=== PATIENT | female | born 1945 | race Caucasian/White ===

== ENCOUNTER 2018-12-07 10:21 | Inpatient (IN) | payer MEDICARE, OTHER ==
[~2018-12-07] VITALS: Ht 157.5 cm; Wt 48.6 kg
[~2018-12-07 10:21] MED LIST: HYDACE5 PO; PROM25 PO
[2018-12-07 10:58] LABS: BASOPHILS ABSOLUTE AUTO 0.03 K/mm3 (0.00-0.23); BASOPHILS PERCENT AUTO 1 % (0-2); EOSINOPHILS ABSOLUTE AUTO 0.06 K/mm3 (0.00-0.68); EOSINOPHILS PERCENT AUTO 1 % (0-6); Hematocrit 37.1 % (33.0-51.0); Hemoglobin 12.7 g/dL (11.5-16.0); IMMATURE GRAN ABSOLUTE AUTO 0.02 K/mm3 (0.00-0.10); IMMATURE GRAN PERCENT AUTO 0 % (0-1); LYMPHOCYTES ABSOLUTE AUTO 1.79 K/mm3 (0.84-5.20); LYMPHOCYTES PERCENT AUTO 29 % (21-46); MONOCYTES ABSOLUTE AUTO 1.06 K/mm3 (0.16-1.47); MONOCYTES PERCENT AUTO 17 % (4-13); Mean Corpuscular HGB 30.3 pg (26.0-34.0); Mean Corpuscular HGB Conc 34.2 g/dL (31.5-36.5); Mean Corpuscular Volume 89 fL (80-100); Mean Platelet Volume 8.8 fL (9.1-12.4); NEUTROPHILS ABSOLUTE AUTO 3.19 K/mm3 (1.96-9.15); NEUTROPHILS PERCENT AUTO 52 % (41-73); Platelet Count 254 K/mm3 (150-400); RDW Coefficient Variation 11.8 % (11.7-14.2); RDW Standard Deviation 37.8 fL (35.1-46.3); Red Blood Cell Count 4.19 M/mm3 (3.80-5.20); White Blood Cell Count 6.15 K/mm3 (4.00-11.30)
[2018-12-07 11:10] LABS: Calcium, Ionized (POC) 1.08 mmol/L (1.10-1.46); Chloride (POC) 90 mmol/L (98-108); Creatinine (POC) 0.7 mg/dL (0.6-1.0); Glucose (ISTAT POC) 130 mg/dL (70-99); Hemoglobin (POC) 12.6 g/dL (12.0-16.0); Potassium (POC) 3.4 mmol/L (3.5-5.5); Sodium (POC) 127 mmol/L (135-148); Total CO2 (POC) 24 mmol/L (21-32)
[2018-12-07 11:24] LABS: Alanine Aminotransfer (ALT/SGP 16 U/L (12-78); Albumin, Blood 3.5 g/dL (3.4-5.0); Albumin/Globulin Ratio 0.9 (0.8-1.8); Alk Phos 82 U/L (50-136); Anion Gap 10 mmol/L (6-16); Aspartate Aminotrans (AST/SGOT 21 U/L (12-37); Bilirubin, Total 0.4 mg/dL (0.1-1.0); Blood Urea Nitrogen 11 mg/dL (8-24); Bun/Creatinine Ratio 15.6 (12.0-20.0); CO2, Blood 26 mmol/L (21-32); Calcium, Blood 8.3 mg/dL (8.5-10.1); Chloride, Blood 92 mmol/L (98-108); Creatinine, Blood 0.71 mg/dL (0.40-1.00); Globulin, Blood 3.8 g/dL (2.2-4.0); Glomerular Filtration Rate >60 (60-); Glucose, Blood 126 mg/dL (70-99); Potassium, Blood 3.4 mmol/L (3.5-5.5); Sodium, Blood 128 mmol/L (136-145); Total Protein, Blood 7.3 g/dL (6.4-8.2); Troponin I <0.015 ng/mL (0.000-0.040)
--- NOTE | 2018-12-07 12:59 | NUR ---
RECEIVED PHONE CALL FROM DR. GOODE WITH PLAN UPDATE: VAGAL PROBABLE FROM PHENERGEN. ATROPINE TO REMAIN AT BEDSIDE. MONITOR OVERNIGHT.
--- NOTE | 2018-12-07 13:00 | NUR ---
Echocardiogram completed.
--- NOTE | 2018-12-07 14:15 | NUR ---
REPORT FROM NAN WELLS RN ER.
--- NOTE | 2018-12-07 14:48 | NUR ---
PATIENT ADMITTED ICU 6. ATROPINE AT BEDSIDE. AT BEDSIDE.
[2018-12-07 16:10] LABS: Appearance, Urine Clear (Clear); Bilirubin, Urine Neg (Neg); Blood, Urine 1+ (Neg); Color, Urine Yellow (P-Yellow); Glucose Qualitative, Urine Neg (Neg); Ketones, Urine 2+ (Neg); Leukocyte Esterase, Urine Neg (Neg); Nitrite, Urine Neg (Neg); Protein, Urine Neg (Neg); Specific Gravity, Urine 1.015 (1.003-1.022); Urobilinogen, Urine NORM (Normal)
[2018-12-07 16:44] LABS: Bacteria Not Seen /hpf; Red Blood Cells, Urine 0-2 /hpf (0-2); Squamous Epithelial Cells Rare /hpf (Few); White Blood Cells, Urine Not Seen /hpf (0-5)
--- NOTE | 2018-12-07 18:19 | NUR ---
MD VISIT DR. GOODE IN. PT NPO AFTER MIDNIGHT. IVF TO CONTINUE AT 100 ML/HR AFTER THIS BAG (AT 125 ML/HR) COMPLETE
--- NOTE | 2018-12-07 19:14 | NUR ---
NO ECTOPY SINCE ADMIT TO ICU. REPORT GIVEN TO ZHENG HIGGINS
--- NOTE | 2018-12-07 21:33 | NUR ---
ASSUMING CARE RECEIVED PT REPORT FROM ZHENG YUSUF. PT IS ALERT AND ORIENTED AT THE TIME CARE WAS ASSUMED. PT IS ADMITTED DUE TO A SYNCOPLA EPISODE AND A SINUS PAUSE. PT HAS EXTERNAL PACER PADS IN PLACE AND EXTERNAL PACER AT BEDSIDE. ATROPINE IS AT BEDSIDE WELL. PT DENIES ANY PAIN OR DISCOMFORT AT THIS TIME. PT IS ABLE TO AMBULATE IN ROOM, REQUIRING ASSISTANCE WITH LINES ONLY. PT HAS BEEN INSTRUCTED TO NOT GET OUT OF BED WITHOUT ASSISTANCE. PT APPEARS TO BE IN NSR AT THIS TIME. HR APPEARS TO BE STABLE IN THE 80'S. PT DENIES ANY FEELING OF WEAKNESS OF LIGHTHEADEDNESS. PT IS ON ROOM AIR WITH SPO2 IN THE HIGH 90'S. LUNG SOUNDS ARE CLEAR AT THIS TIME. PT IS TO BE NPO AFTER MIDNIGHT DUE TO A POSSIBLE PROCEDURE. ASSUMING CARE OF PT AT THE TIME OF SHIFT REPORT. WILL CONTINUE TO MONITOR PT.
[2018-12-08 04:21] LABS: International Normalized Ratio 1.02; Prothrombin Time Results 10.8 Sec (9.7-11.5)
[2018-12-08 04:50] LABS: Anion Gap 10 mmol/L (6-16); Blood Urea Nitrogen 10 mg/dL (8-24); CO2, Blood 21 mmol/L (21-32); Calcium, Blood 7.8 mg/dL (8.5-10.1); Chloride, Blood 107 mmol/L (98-108); Creatinine, Blood 0.59 mg/dL (0.40-1.00); Glomerular Filtration Rate >60 (60-); Glucose, Blood 89 mg/dL (70-99); Potassium, Blood 3.9 mmol/L (3.5-5.5); Sodium, Blood 138 mmol/L (136-145)
--- NOTE | 2018-12-08 05:21 | NUR ---
SHIFT SUMMARY NOTE PT HAS REMAINED ALERT AND ORIENTED THROUGH THE NIGHT WHILE AWAKE. PT HAS SLEPT THROUGH MUCH OF THE NIGHT. PT HAS USEED CALL LIGHT APPROPRIATELY FOR ASSISTANCE WITH LINES AND TUBES WHEN GETTING UP TO USE BSC. PT HAS HAD CLEAR LIGHT YELLOW URINE THROUGH THE NIGHT. PT IS ON NS AT 100ML/HR AT THIS TIME. PT CONTINUES TO HAVE ZOLL IN PLACE AND HAVE ATRPOINE AT BEDSIDE. PT HAS REMAINED IN NSR THROUGH THE NIGHT. PT AVERAGED IN THE 80'S WHILE AWAKE AND IN THE 60'S WHILE ASLEEP. PT HAS NOT HAD ANY ECTOPY OR PAUSES OBSERVED THROUGH THE SHIFT. PT HAS DENIED ANY LIGHTHEADEDNESS OR WEAKNESS THROUGHOUT THE SHIFT. WILL REPORT OFF TO [facility] DAY SHIFT NURSE.
--- NOTE | 2018-12-08 07:06 | NUR ---
ASSUMED CARE REPORT FROM ZHENG HIGGINS. PATIENT AWAKE, WAS DISAPPOINTED TO LEARN SHE WOULD NOT BE SENT HOME TODAY AND HER INITIAL SBP'S WERE HIGH. CALMED SOME OF THE LINES AND CORDS REMOVED
--- NOTE | 2018-12-08 07:31 | NUR ---
ACTUALLY IN LEFT WRIST
--- NOTE | 2018-12-08 07:34 | NUR ---
PATIENT ATTEMPTED BM WITH NO RESULTS. MONITOR WATCHED, NO SIGN OF VAGAL.
--- NOTE | 2018-12-08 07:42 | NUR ---
MD VISIT DR. MÁRQUEZ IN
--- NOTE | 2018-12-08 13:15 | NUR ---
REPORT GIVEN TO ZHENG ANDREA. WILL MOVE PATIENT IN WC TO PCU 11
--- NOTE | 2018-12-08 13:40 | NUR ---
TRANSFER ASSESSMENT: Pt arrived to room pcu 11 from ICU via wc. Alert and oriented X 4. LS clear. BT positive, HR reg, Pulses palp. Pt has at her side. Oriented to room and unit. Pt denies pain, CP, dizziness or any issues. Call light in reach. Will continue to mnoitor.
--- NOTE | 2018-12-08 18:25 | NUR ---
SHIFT SUMMARY: Pt up independently in room. Has denied any pain, sob, dizziness since arrival to unit. Pt was able to shower and states that she is feeling much better. Pt does have dry cough. VSS throughout shift. Plan for discharge tomorrow with heart monitor to home. Pt denies questions about this at this time. Call light in reach. at bedside. Will report to night rn.
--- NOTE | 2018-12-08 18:38 | NUR ---
Per admit trigger, I met with Jasmyn to discuss Advanced Directives. She was irritaited and asked that "we" stop asking her about this.
--- NOTE | 2018-12-09 06:19 | NUR ---
SHIFT SUMMARY PT ALERT AND ORIENTED. VS STABLE. PT INDEPENDENT IN THE ROOM. NO CHANGES IN HEART RHYTHM. PT DENIES ANY PAIN. PT COMPLAINS OF CONGESTED COUGH WITH NO PRODUCTION. O2 SATS >92% ON RA. NO CHANGES SINCE INITIAL ASSESSMENT. WILL CONTINUE TO MONITOR AND REPORT TO ONCOMING RN. CALL LIGHT IN REACH.
--- NOTE | 2018-12-09 07:42 | NUR ---
INITIAL ASSESSMENT: Pt woke to verbal stimulus and is independent in room. States that she is feeling pretty good. LS clear. HR reg. BT positive. pulses palp. Pt states that she is anxious to be discharged. Plan for discharge today after heart monitor is placed for home. VSS. Will monitor. Call light in reach.
--- NOTE | 2018-12-09 10:50 | NUR ---
discharge: Pt was given to verbal and written discharge instructions. IV's discontinued and cath intact. Zio heart monitor was placed by heart center nurse. Pt denies questions regarding discharge or heart monitor. Waiting for to get here. Marisabel at this time. Will monitor.
--- NOTE | 2018-12-09 11:35 | NUR ---
PT LEFT VIA W/C FROM [facility]. STABLE AT TIME OF DISCHARGE.
== END 2018-12-09 11:15 | disposition home or self-care (01) | DRG 308 ==
LOC: ER 10:21 → PCU 14:18 → ICUE 14:54 → ICUW 14:54 → ICUE 14:56 → PCU 12-08 13:32
PROVIDERS: Emergency Medicine; Internal Medicine; Internal Medicine Cardiovascular Disease; ADMIT Internal Medicine
DX: R00.1 Bradycardia, unspecified (principal); I46.9 Cardiac arrest, cause unspecified; E87.1 Hypo-osmolality and hyponatremia; R00.0 Tachycardia, unspecified; E87.6 Hypokalemia; T42.6X5A Adverse effect of other antiepileptic and sedative-hypnotic drugs, initial encounter; Y92.009 Unspecified place in unspecified non-institutional (private) residence as the place of occurrence of the external cause; W18.30XA Fall on same level, unspecified, initial encounter; S09.90XA Unspecified injury of head, initial encounter; B34.9 Viral infection, unspecified; E86.0 Dehydration; R31.9 Hematuria, unspecified; I10 Essential (primary) hypertension
CPT/HCPCS: 36415; 70450; 80047; 80048; 80053; 81001; 83735; 84443; 84484; 85014; 85025; 85610; 86850; 86900; 86901; 93005; 93010; 93306; 96365; 96366; 96375; 99285-25; J0461; J1265; J2405; J3480; J7030; J7120

== ENCOUNTER 2020-08-16 10:51 | Emergency (ER) | payer MEDICARE, OTHER ==
[~2020-08-16] VITALS: Ht 157.5 cm; Wt 47.6 kg
[2020-08-16 12:21] LABS: BASOPHILS ABSOLUTE AUTO 0.07 K/mm3 (0.00-0.23); BASOPHILS PERCENT AUTO 1 % (0-2); EOSINOPHILS ABSOLUTE AUTO 0.04 K/mm3 (0.00-0.68); EOSINOPHILS PERCENT AUTO 0 % (0-6); Hematocrit 42.2 % (33.0-51.0); Hemoglobin 13.7 g/dL (11.5-16.0); IMMATURE GRAN ABSOLUTE AUTO 0.09 K/mm3 (0.00-0.10); IMMATURE GRAN PERCENT AUTO 1 % (0-1); LYMPHOCYTES ABSOLUTE AUTO 0.95 K/mm3 (0.84-5.20); LYMPHOCYTES PERCENT AUTO 6 % (21-46); MONOCYTES ABSOLUTE AUTO 1.13 K/mm3 (0.16-1.47); MONOCYTES PERCENT AUTO 7 % (4-13); Mean Corpuscular HGB 29.7 pg (26.0-34.0); Mean Corpuscular HGB Conc 32.5 g/dL (31.5-36.5); Mean Corpuscular Volume 92 fL (80-100); Mean Platelet Volume 8.7 fL (9.1-12.4); NEUTROPHILS ABSOLUTE AUTO 13.18 K/mm3 (1.96-9.15); NEUTROPHILS PERCENT AUTO 85 % (41-73); Platelet Count 325 K/mm3 (150-400); RDW Standard Deviation 40.4 fL (35.1-46.3); Red Blood Cell Count 4.61 M/mm3 (3.80-5.20); White Blood Cell Count 15.46 K/mm3 (4.00-11.30)
[2020-08-16 12:32] LABS: Alanine Aminotransfer (ALT/SGP 26 U/L (12-78); Albumin, Blood 3.7 g/dL (3.4-5.0); Albumin/Globulin Ratio 0.9 (0.8-1.8); Alk Phos 84 U/L (50-136); Anion Gap 7 mmol/L (6-16); Aspartate Aminotrans (AST/SGOT 26 U/L (12-37); Bilirubin, Total 0.5 mg/dL (0.1-1.0); Blood Urea Nitrogen 12 mg/dL (8-24); Bun/Creatinine Ratio 19.4 (12.0-20.0); CO2, Blood 25 mmol/L (21-32); Calcium, Blood 9.1 mg/dL (8.5-10.1); Chloride, Blood 105 mmol/L (98-108); Creatinine, Blood 0.62 mg/dL (0.40-1.00); Globulin, Blood 3.9 g/dL (2.2-4.0); Glomerular Filtration Rate >60 (60-); Glucose, Blood 110 mg/dL (70-99); Magnesium, Blood 2.1 mg/dL (1.6-2.4); Potassium, Blood 3.3 mmol/L (3.5-5.5); Sodium, Blood 137 mmol/L (136-145); Total Protein, Blood 7.6 g/dL (6.4-8.2)
== END 2020-08-16 15:40 | disposition home or self-care (01) ==
LOC: ER 10:51
PROVIDERS: Physician Assistant
DX: R19.7 Diarrhea, unspecified (principal); R55 Syncope and collapse; R11.2 Nausea with vomiting, unspecified; R68.83 Chills (without fever); Z88.8 Allergy status to other drugs, medicaments and biological substances
CPT/HCPCS: 36415; 71046; 80053; 83690; 83735; 85025; 93005; 93010; 99284-25; J7030

== ENCOUNTER → 2020-08-21 | Outpatient (CLI) | payer MEDICARE, OTHER ==
[2020-08-21 19:00] LABS: Adenovirus F 40/41 Not Detected (NOT DETECT); Astrovirus Not Detected (NOT DETECT); Campylobacter Sp Not Detected (NOT DETECT); Cryptosporidium Not Detected (NOT DETECT); Cyclospora Cayetanensis Not Detected (NOT DETECT); E. Coli O157 Not Detected (NOT DETECT); Entamoeba Histolytica Not Detected (NOT DETECT); Enteroaggregative E. coli-EAEC Not Detected (NOT DETECT); Enteropathogenic E. coli-EPEC Not Detected (NOT DETECT); Enterotoxigenic E. coli-ETEC Not Detected (NOT DETECT); Giardia Lamblia Detected (NOT DETECT); Norovirus GI/GII Not Detected (NOT DETECT); Plesiomonas Shigelloides Not Detected (NOT DETECT); Rotavirus A Not Detected (NOT DETECT); Salmonella Sp Not Detected (NOT DETECT); Sapovirus Not Detected (NOT DETECT); Shiga Toxin-prod E. coli-STEC Not Detected (NOT DETECT); Shigella/Enteroin E. coli-EIEC Not Detected (NOT DETECT); Vibrio Cholerae Not Detected (NOT DETECT); Vibrio Sp Not Detected (NOT DETECT); Yersinia Enterocolitica Not Detected (NOT DETECT)
== END | disposition home or self-care (01) ==
LOC: LAB 15:44 → LAB SHORT 15:44
PROVIDERS: Chiropractor
DX: R19.7 Diarrhea, unspecified (principal)
CPT/HCPCS: 0097U

== ENCOUNTER 2021-03-28 07:18 | Day surgery (SDC) | payer MEDICARE, OTHER ==
[~2021-03-28] VITALS: Ht 157.5 cm; Wt 47.1 kg
--- NOTE | 2021-03-28 07:43 | NUR ---
03/28/21 0743 Khushi Fang 0740 TETRACAIN DROP PLACED IN LEFT EYE PER ORDERS BY [facility].PENDING SALE TO [facility] 0742 PLEDGET PLACED IN LEFT EYE PER ORDERS BY [facility].PENDING SALE TO [facility].
== END 2021-03-28 09:46 | disposition home or self-care (01) ==
LOC: ORSCSDS 07:18
PROVIDERS: Ophthalmology
PROC: 08RK3JZ Replacement of Left Lens with Synthetic Substitute, Percutaneous Approach (ICD-10-PCS; principal; 2021-03-28 08:30)
DX: H25.12 Age-related nuclear cataract, left eye (principal)
CPT/HCPCS: A9270; J2001; J2250; J3301; J7040; V2632

== ENCOUNTER → 2023-11-24 | Outpatient (CLI) | payer MEDICARE, OTHER | END | disposition home or self-care (01) | LOC: LAB 12:16 → LAB SHORT 12:16 | DX: N39.0 Urinary tract infection, site not specified (principal) | CPT/HCPCS: 87086 ==